=== PATIENT | male | born 1995 | race African-American/Black ===

== ENCOUNTER 2018-08-27 04:53 | Emergency (ER) | payer OTHER ==
[~2018-08-27] VITALS: Ht 172.7 cm; Wt 96.2 kg
--- NOTE | ~2018-08-27 | EKG ---
[place], [place] ELECTROCARDIOGRAM REPORT NAME: FLAVIO CHAPIN UNIT #: [id number] ROOM: DOCTOR: EPIPHANY DRAFT REPORT BIRTHDATE: [birth year] [facility] Test Date: 2018-08-27 Test Time: 05:38:10 Pat Name: FLAVIO CHAPIN Department: Room: Gender: Manager Cardiovascular: : 1995 Requested By: TERESA RUANO Order Number: [id number] Reading MD: Rahul Whitney MD Measurements Intervals [place] Rate: 102 P: 43 MN: 165 QRS: -15 QRSD: 93 T: -4 QT: 343 QTc: 447 Interpretive Statements Sinus tachycardia Probable left atrial enlargement RSR' in V1 or V2, probably normal variant LVH by voltage Borderline T abnormalities, anterior leads Baseline wander in lead(s) V2 No change from earlier ECG this date. Electronically Signed On 08-27-2018 13:01:02 PDT by Rahul Whitney MD CM:EKGRPT:ELECTROCARDIOGRAM REPORT [id number] TERESA RUANO MD EPIPHANY DRAFT REPORT TERESA RUANO MD
--- NOTE | ~2018-08-27 | EKG ---
[place], [place] ELECTROCARDIOGRAM REPORT NAME: FLAVIO CHAPIN UNIT #: [id number] ROOM: DOCTOR: EPIPHANY DRAFT REPORT BIRTHDATE: [birth year] 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 Electronically Signed On 08-27-2018 13:01:44 PDT by Rahul Whitney MD CM:EKGRPT:ELECTROCARDIOGRAM REPORT [id number] 1301 TERESA RUANO MD EPIPHANY DRAFT REPORT TERESA RUANO MD
--- NOTE | ~2018-08-27 | EKG ---
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
[~2018-08-27 04:53] MED LIST: ANAPROX DS550 MG PO; AUGMENTIN ES-6050 ML PO; CLARITIN5 MG/5 ML PO; LISINOPRIL AND1 TAB PO; Orphenadrine C100 MG PO; ZANTAC 7575 MG PO; ZOFRAN ODT4 MG SL
[2018-08-27 05:16] LABS: BASO % 0.4 % (0.0-1.0); EOS % 0.4 % (1.0-4.0); HEMATOCRIT 45.6 % (42.0-52.0); HEMOGLOBIN 16.1 g/dl (14.0-18.0); LYMPH % 43.9 % (27.0-41.0); MEAN CELL VOLUME 89.1 fl (80.0-94.0); MEAN CORPUSCULAR HGB 31.4 pg (27.0-31.0); MEAN CORPUSCULAR HGB CONC 35.3 g/dl (33.0-37.0); MONO # 0.4 10*3/uL (0.1-1.0); MONO % 5.9 % (3.0-9.0); NEUT # 3.3 10*3/uL (2.3-7.9); PLATELET COUNT AUTOMATED 288 10*3/uL (130-400); RED BLOOD COUNT 5.12 10*6/uL (4.50-5.90); RED CELL DISTRI WIDTH 12.1 % (0-14.5); WHITE BLOOD COUNT 6.8 10*3/uL (4.8-10.8)
[2018-08-27 05:26] LABS: ACT PARTIAL THROMBO TIME 23.9 SECONDS (20.8-31.5)
[2018-08-27 05:33] LABS: ALBUMIN 4.4 gm/dl (3.1-4.5); ALKALINE PHOSPHATASE 70 U/L (45-117); BUN 9 mg/dl (7-24); CHLORIDE 103 mmol/L (98-107); CREATININE 0.85 mg/dL (0.70-1.30); POTASSIUM 3.8 mmol/L (3.5-5.1); SGOT/AST 30 IU/L (3-35); SGPT/ALT 87 U/L (12-78); SODIUM 139 mmol/L (136-145); TOTAL PROTEIN 8.4 gm/dL (6.4-8.2)
[2018-08-27 05:37] LABS: TROPONIN I < 0.015 ng/ml (<0.045)
[2018-08-27] MEDS ORDERED: Lopressor25 MG PO (06:03)
[2018-08-27 06:13] VITALS: BP 136/82
== END 2018-08-27 06:24 | disposition home or self-care (01) ==
LOC: ED 04:53
PROVIDERS: Emergency Medicine Emergency Medical Services
DX: I10 Essential (primary) hypertension (principal); R06.02 Shortness of breath; R07.9 Chest pain, unspecified; Z79.899 Other long term (current) drug therapy

== ENCOUNTER 2018-12-17 04:07 | Emergency (ER) | payer OTHER ==
[~2018-12-17] VITALS: Ht 172.7 cm; Wt 95.3 kg
[~2018-12-17 04:07] MED LIST changes: +Lopressor25 MG PO
[2018-12-17 04:11] VITALS: BP 136/82
[2018-12-17 04:33] LABS: BILIRUBIN NEGATIVE (NEGATIVE); BLOOD TRACE-LYSED (NEGATIVE); CLARITY CLEAR (CLEAR); COLOR YELLOW (YELLOW); GLUCOSE NEGATIVE (NEGATIVE); KETONE NEGATIVE (NEGATIVE); LEUKO ESTERASE NEGATIVE (NEGATIVE); NITRITE NEGATIVE (NEGATIVE); PH 5.5 (5.0-9.0); SPECIFIC GRAVITY <= 1.005 (1.005-1.030); UROBILINOGEN 0.2 E.U./dl (0.2-1.0)
[2018-12-17 04:35] LABS: BASO # 0.1 10*3/uL (0.0-0.1); BASO % 0.7 % (0.0-1.0); EOS % 0.1 % (1.0-4.0); HEMATOCRIT 47.5 % (42.0-52.0); HEMOGLOBIN 16.6 g/dl (14.0-18.0); LYMPH # 3.1 10*3/uL (1.3-4.4); MEAN CELL VOLUME 89.8 fl (80.0-94.0); MEAN CORPUSCULAR HGB 31.4 pg (27.0-31.0); MEAN CORPUSCULAR HGB CONC 34.9 g/dl (33.0-37.0); MEAN PLATELET VOLUME 10.1 fl (9.6-12.3); MONO # 0.4 10*3/uL (0.1-1.0); MONO % 5.4 % (3.0-9.0); NEUT # 4.1 10*3/uL (2.3-7.9); NEUT % 53.5 % (47.0-73.0); PLATELET COUNT AUTOMATED 321 10*3/uL (130-400); RED BLOOD COUNT 5.29 10*6/uL (4.50-5.90); RED CELL DISTRI WIDTH 12.1 % (0-14.5); WHITE BLOOD COUNT 7.6 10*3/uL (4.8-10.8)
[2018-12-17 04:40] LABS: RBC 0-2 rbc/hpf (0-2); WBC 0-2 wbc/hpf (0-5)
[2018-12-17 04:43] LABS: URINE AMPHETAMINES < 1000 (1000ng/ml); URINE BARBITURATES < 200 (200ng/ml); URINE BENZODIAZEPINES < 200 (200ng/ml); URINE CANNABINOIDS (THC) < 50 (50ng/ml); URINE COCAINE < 300 (300ng/ml); URINE METHADONE < 300 (300ng/ml); URINE OPIATES < 300 (300ng/ml); URINE PHENCYCLIDINE < 25 (25ng/ml)
[2018-12-17 04:51] LABS: ALBUMIN 4.3 gm/dl (3.1-4.5); ALKALINE PHOSPHATASE 61 U/L (45-117); BUN 9 mg/dl (7-24); CHLORIDE 108 mmol/L (98-107); CREATININE 0.93 mg/dL (0.70-1.30); POTASSIUM 3.6 mmol/L (3.5-5.1); SGOT/AST 29 IU/L (3-35); SGPT/ALT 71 U/L (12-78); SODIUM 143 mmol/L (136-145)
[2018-12-17 04:52] LABS: ACETAMINOPHEN (TYLENOL) < 5.0 ug/ml (10-30)
== END 2018-12-17 13:38 | disposition home or self-care (01) ==
LOC: ED 04:07
PROVIDERS: Emergency Medicine
DX: F43.21 Adjustment disorder with depressed mood (principal); I10 Essential (primary) hypertension; Z79.899 Other long term (current) drug therapy

== ENCOUNTER 2025-01-29 03:37 | Emergency (ER) | payer SELFPAY ==
[~2025-01-29] VITALS: Ht 172.7 cm; Wt 81.6 kg
[2025-01-29] MEDS ORDERED: Tetracaine Hydrochloride 0.5% 4 ML BOT OPH ONE (03:40)
[2025-01-29] MEDS ORDERED: LISSAMINE GREEN 1.5 MG STRIP OP ONE (03:40)
[2025-01-29 03:44] VITALS: BP 97/60
[2025-01-29] MEDS ORDERED: Dexamethasone/Tobramycin OPHTHALMIC 2.5 ML BOTTLE OPH ONE (04:05)
[2025-01-29] MEDS ORDERED: Bacitracin Zinc 14 GM TUBE T ONE (04:20)
== END 2025-01-29 04:24 | disposition home or self-care (01) ==
LOC: ED 03:37
DX: S01.01XA Laceration without foreign body of scalp, initial encounter (principal); S05.02XA Injury of conjunctiva and corneal abrasion without foreign body, left eye, initial encounter; S05.01XA Injury of conjunctiva and corneal abrasion without foreign body, right eye, initial encounter; I10 Essential (primary) hypertension; K21.9 Gastro-esophageal reflux disease without esophagitis; R55 Syncope and collapse; W22.03XA Walked into furniture, initial encounter; Y93.89 Activity, other specified; Y92.002 Bathroom of unspecified non-institutional (private) residence as the place of occurrence of the external cause; Y99.8 Other external cause status

== ENCOUNTER 2025-09-25 15:48 | Emergency (ER) | payer SELFPAY ==
[~2025-09-25] VITALS: Ht 175.2 cm; Wt 77.1 kg
[2025-09-25] MEDS ORDERED: Acetaminophen/Oxycodone 5 MG/325 MG TABLET PO ONE (16:00)
[2025-09-25 16:03] VITALS: BP 134/77
[2025-09-25] MEDS ORDERED: MELOXICAM15 MG PO (16:36)
== END 2025-09-25 16:07 | disposition home or self-care (01) ==
LOC: ED 15:48
DX: S50.01XA Contusion of right elbow, initial encounter (principal); I10 Essential (primary) hypertension; K21.9 Gastro-esophageal reflux disease without esophagitis; X58.XXXA Exposure to other specified factors, initial encounter; Y93.89 Activity, other specified; Y92.89 Other specified places as the place of occurrence of the external cause; Y99.8 Other external cause status

== ENCOUNTER 2025-09-28 17:48 | Emergency (ER) | payer BC ==
[~2025-09-28 17:48] MED LIST changes: +MELOXICAM15 MG PO
[2025-09-29] MEDS ORDERED: Motrin,Rufen800 MG PO (12:56)
== END 2025-09-28 18:59 | disposition left against medical advice (07) ==
LOC: ED 17:48
DX: M25.511 Pain in right shoulder (principal); Z53.21 Procedure and treatment not carried out due to patient leaving prior to being seen by health care provider

== ENCOUNTER 2025-09-29 10:46 | Emergency (ER) | payer BC ==
[~2025-09-29] VITALS: Ht 175.2 cm; Wt 77.1 kg
[2025-09-29 10:58] VITALS: BP 141/73
[2025-09-29] MEDS ORDERED: Motrin,Rufen800 MG PO (12:56)
[2025-09-29] MEDS ORDERED: IBUPROFEN 800 MG TAB PO ONE (13:00)
== END 2025-09-29 13:14 | disposition home or self-care (01) ==
LOC: ED 10:46
DX: S46.911A Strain of unspecified muscle, fascia and tendon at shoulder and upper arm level, right arm, initial encounter (principal); W19.XXXA Unspecified fall, initial encounter; Y93.89 Activity, other specified; Y92.89 Other specified places as the place of occurrence of the external cause; Y99.8 Other external cause status

== ENCOUNTER → 2025-10-31 | Outpatient (CLI) | payer OTHER, BC ==
[~2025-10-31] MED LIST changes: +Motrin,Rufen800 MG PO
== END | disposition home or self-care (01) ==
LOC: RAD 11:40
PROVIDERS: ATTEND Family Medicine
DX: S33.9XXA Sprain of unspecified parts of lumbar spine and pelvis, initial encounter (principal); X58.XXXA Exposure to other specified factors, initial encounter; Y93.89 Activity, other specified; Y92.89 Other specified places as the place of occurrence of the external cause; Y99.8 Other external cause status

== ENCOUNTER → 2025-11-16 | Outpatient (CLI) | payer BC | END | disposition home or self-care (01) | LOC: US 00:27 | PROVIDERS: ATTEND Internal Medicine | DX: M54.9 Dorsalgia, unspecified (principal); M48.8X6 Other specified spondylopathies, lumbar region ==